=== PATIENT | male | born 1965 | race African-American/Black ===

== ENCOUNTER 2021-05-01 01:42 | Emergency (ER) | payer SELFPAY ==
[2021-05-01] VITALS (9 sets, daily range): BP systolic 91–127; BP diastolic 57–84; PULSE 96–120; RESP 20–30; TEMP 36.3–36.6; O2SAT 91–100; BMI 24.7
--- NOTE | ~2021-05-01 | XR_ITS ---
EXAMINATION: XR CHEST CLINICAL INFORMATION: Intubation. OG tube placement. COMPARISON: None TECHNIQUE: Frontal view of the chest was obtained. FINDINGS: Cardiac leads overlie the chest. Defibrillator pad overlies the chest, limiting evaluation. Endotracheal tube appears to terminate approximately 2 cm above the jacek. Enteric tube terminates in the stomach. The lungs are well expanded. Patchy left basilar opacity noted. No pleural effusion or pneumothorax. The cardiomediastinal silhouette is within normal limits. XR/XR chest 1V IMPRESSION: Endotracheal tube terminates approximately 2 cm above the jacek. Enteric tube terminates in the stomach. Patchy opacity at the left lung base. This could be atelectasis or pneumonia.
--- NOTE | ~2021-05-01 | XR_ITS ---
EXAMINATION: XR CHEST CLINICAL INFORMATION: Check for ET tube placement. COMPARISON: Same day earlier. TECHNIQUE: Frontal view of the chest was obtained. FINDINGS: Gastric tube passing below the diaphragm into the stomach. Endotracheal tube tip is 2 cm above jacek. Redemonstration of patchy interstitial opacification at left lung base unchanged allowing variation in technique. No large effusion. XR/XR chest 1V IMPRESSION: Endotracheal tube is only 1 cm above jacek, this can be pulled back 3 cm for optimal positioning. Gastric tube in place properly positioned. Mild patchy opacification at left lung base unchanged.
--- NOTE | 2021-05-01 02:46 | ED.ALCOHOL ---
HPI - Alcohol General Chief Complaint: ETOH/Substance Use Stated Complaint: ETOH Time Seen by Provider: 05/01/21 02:45 Source: family Mode of arrival: other History of Present Illness HPI narrative: 56-year-old male who [place] and is brought in by family member for patient having had ?7 or 8 shots as well as 6 beers? that the family is aware of. Patient is a noted drinker, but family member became concerned when patient began vomiting. None of the history is able to be obtained from the patient at this time. Related Data Allergies Allergy/AdvReac Type Severity Reaction Status Date / Time No Known Allergies Allergy Verified 05/01/21 01:47 Review of Systems Review of Systems: Yes Unobtainable due to mental status PMFSH Past Medical History Medical History ETOH abuse Social History Social History Alcohol intake: unknown Patient Tobacco Use Status: Tobacco use Unknown Use of substances other than those prescribed or required for medical reasons: Unable to respond Advance Directives: No Physical Exam Vital Signs: Vital Signs: Last Vital Signs Temp 97.6 F 05/01/21 03:57 Pulse 105 H 05/01/21 06:08 Resp 22 H 05/01/21 06:08 BP 104/67 05/01/21 06:08 Pulse Ox 96 05/01/21 03:57 Body Mass Index 24.7 VITAL SIGNS: Reviewed. GENERAL: Well developed, smells of alcohol HEAD: Normocephalic/atraumatic EYES: PERRLA, EOMI, does not appear to be pinpoint. EARS: Ext canals without abnormality, TMs non-bulging and non-erythematous NOSE: Nares patent bilateral OROPHARYNX: no oral lesions noted, posterior pharynx clear NECK: Supple, no adenopathy LUNGS: Decreased breath sounds but without wheeze/rhonchi/rales No adventitious sounds or accessory muscle use. SpO2<94> CARDIOVASCULAR: Regular rate and rhythm without noted murmurs ABDOMEN: Soft, non-tender, non-distended with bowel sounds. SKIN: Inspection of the skin reveals no rashes NEUROLOGIC: GCS-10, non-focal Course Course Course Narrative: 56-year-old male with history and clinical presentation consistent with significant alcohol intoxication, patient did receive Narcan initially for questionable co-intoxication. Patient appeared to have improved level of consciousness he, however began vomiting once again with questionable coffee-ground emesis and at that time patient was intubated. Patient received 80 mg Protonix IV push, however stool guaiac is negative and BUN is not elevated. Chest x-ray for ET tube and OGT placement demonstrates left lower lobe patchy opacity and given vomiting episodes suspect that this is aspiration and patient was provided with combination Zosyn and vancomycin. Patient is receiving sedation with propofol and Versed. Hospital ICU is full and patient will be transferred after discussion of case to [facility] after both [facility] and [facility] were unable to accept transfer. Patient remains hemodynamically stable and family is aware of all results, diagnoses, as well as transfer to [place]. Reevaluation(s) Reevaluation #2: Patient began vomiting copiously and decision was made to intubate for airway protection as he did not appear concerned. In addition, vomitus appears to be coffee-ground in nature and type and screen as well as stool occult were obtained. Time: 04:15 MDM - Alcohol Lab Data Result diagrams: 05/01/21 06:03 05/01/21 03:02 Labs: Lab Results 05/01/21 05/01/21 05/01/21 Range/Units 03:02 03:02 03:02 WBC 14.9 H (4.8-10.8) X10*3/uL RBC 4.79 (4.60-5.80) X10*6/uL Hgb 15.0 (14.0-18.0) g/dl Hct 44.6 (42-52) % MCV 93.1 (80-98) fL MCH 31.3 (27.0-33.0) pg MCHC 33.6 (31.0-36.0) g/dl RDW 11.9 (11.0-16.0) % Plt Count 288 (160-400) X10*3/uL MPV 9.3 L (9.4-12.4) fL Immature Gran % (Auto) 0.8 H (0.0-0.4) % Neut % (Auto) 72.9 (45-73) % Lymph % (Auto) 19.1 L (20-40) % [place] % (Auto) 4.8 (2-11) % Eos % (Auto) 1.7 (0-4) % Baso % (Auto) 0.7 (0-2) % Lymph # (Auto) 2.8 (1.2-4.9) X10*3/uL [place] # (Auto) 0.7 (0.1-1.2) X10*3/uL Eos # (Auto) 0.3 (0.0-0.4) X10*3/uL Baso # (Auto) 0.1 (0.0-0.2) X10*3/uL Abs Immat Gran (auto) 0.12 H (0.00-0.03) X10*3/uL Absolute Neuts (auto) 10.9 H (2.0-8.3) X10*3/uL Absolute Nucleated RBC 0.000 (0.0-0.012) X10*3/uL Nucleated RBC % (auto) 0.0 (0.0-0.2) /100WBC PT (9.9-13.0) SEC INR (0.9-1.1) Sodium 141 (135-145) mmol/L Potassium 3.6 (3.3-5.1) mmol/L Chloride 103 (96-108) mmol/L Carbon Dioxide 25 (22-29) mmol/L Anion Gap 17 (12-20) BUN 12 (9-16) mg/dL Creatinine 0.81 (0.5-1.4) mg/dL Estim Creat Clear Calc 94.0 Estimated GFR > 60 POC Glucose (60-115) mg/dL Random Glucose 157 H (60-115) mg/dL Calcium 8.6 (8.4-10.2) mg/dL Total Bilirubin < 0.2 (0.0-1.0) mg/dL AST 28 (5-37) U/L ALT 53 H (0-40) U/L Alkaline Phosphatase 106 (39-117) U/L Total Protein 7.4 (6.5-8.0) g/dL Albumin 4.3 (3.5-5.0) g/dL Lipase 30 (8-78) U/L Stool Occult Blood (NEGATIVE) Urine Opiates Screen (Not Detect) Urine Fentanyl Screen (Not Detect) Ur Barbiturates Screen (Not Detect) Ur Phencyclidine Scrn (Not Detect) Ur Amphetamines Screen (Not Detect) U Benzodiazepines Scrn (Not Detect) Urine Cocaine Screen (Not Detect) U Marijuana (THC) Screen (Not Detect) Ethyl Alcohol 345 H* mg/dL COVID-19 ([facility]) (Negative) COVID-19 Clin Com Blood Type Antibody Screen 05/01/21 05/01/21 05/01/21 Range/Units 03:10 03:26 04:13 WBC (4.8-10.8) X10*3/uL RBC (4.60-5.80) X10*6/uL Hgb (14.0-18.0) g/dl Hct (42-52) % MCV (80-98) fL MCH (27.0-33.0) pg MCHC (31.0-36.0) g/dl RDW (11.0-16.0) % Plt Count (160-400) X10*3/uL MPV (9.4-12.4) fL Immature Gran % (Auto) (0.0-0.4) % Neut % (Auto) (45-73) % Lymph % (Auto) (20-40) % [place] % (Auto) (2-11) % Eos % (Auto) (0-4) % Baso % (Auto) (0-2) % Lymph # (Auto) (1.2-4.9) X10*3/uL [place] # (Auto) (0.1-1.2) X10*3/uL Eos # (Auto) (0.0-0.4) X10*3/uL Baso # (Auto) (0.0-0.2) X10*3/uL Abs Immat Gran (auto) (0.00-0.03) X10*3/uL Absolute Neuts (auto) (2.0-8.3) X10*3/uL Absolute Nucleated RBC (0.0-0.012) X10*3/uL Nucleated RBC % (auto) (0.0-0.2) /100WBC PT (9.9-13.0) SEC INR (0.9-1.1) Sodium (135-145) mmol/L Potassium (3.3-5.1) mmol/L Chloride (96-108) mmol/L Carbon Dioxide (22-29) mmol/L Anion Gap (12-20) BUN (9-16) mg/dL Creatinine (0.5-1.4) mg/dL Estim Creat Clear Calc Estimated GFR POC Glucose 178 H (60-115) mg/dL Random Glucose (60-115) mg/dL Calcium (8.4-10.2) mg/dL Total Bilirubin (0.0-1.0) mg/dL AST (5-37) U/L ALT (0-40) U/L Alkaline Phosphatase (39-117) U/L Total Protein (6.5-8.0) g/dL Albumin (3.5-5.0) g/dL Lipase (8-78) U/L Stool Occult Blood (NEGATIVE) Urine Opiates Screen Not Detected (Not Detect) Urine Fentanyl Screen Not Detected (Not Detect) Ur Barbiturates Screen Not Detected (Not Detect) Ur Phencyclidine Scrn Not Detected (Not Detect) Ur Amphetamines Screen Not Detected (Not Detect) U Benzodiazepines Scrn Not Detected (Not Detect) Urine Cocaine Screen Not Detected (Not Detect) U Marijuana (THC) Screen POSITIVE H (Not Detect) Ethyl Alcohol mg/dL COVID-19 ([facility]) (Negative) COVID-19 Clin Com Blood Type O Positive Antibody Screen NEGATIVE 05/01/21 05/01/21 05/01/21 Range/Units 05:22 05:27 06:03 WBC 13.4 H (4.8-10.8) X10*3/uL RBC 4.67 (4.60-5.80) X10*6/uL Hgb 14.8 (14.0-18.0) g/dl Hct 43.2 (42-52) % MCV 92.5 (80-98) fL MCH 31.7 (27.0-33.0) pg MCHC 34.3 (31.0-36.0) g/dl RDW 11.9 (11.0-16.0) % Plt Count 276 (160-400) X10*3/uL MPV 9.4 (9.4-12.4) fL Immature Gran % (Auto) 0.9 H (0.0-0.4) % Neut % (Auto) 76.4 H (45-73) % Lymph % (Auto) 16.8 L (20-40) % [place] % (Auto) 4.9 (2-11) % Eos % (Auto) 0.5 (0-4) % Baso % (Auto) 0.5 (0-2) % Lymph # (Auto) 2.3 (1.2-4.9) X10*3/uL [place] # (Auto) 0.7 (0.1-1.2) X10*3/uL Eos # (Auto) 0.1 (0.0-0.4) X10*3/uL Baso # (Auto) 0.1 (0.0-0.2) X10*3/uL Abs Immat Gran (auto) 0.12 H (0.00-0.03) X10*3/uL Absolute Neuts (auto) 10.2 H (2.0-8.3) X10*3/uL Absolute Nucleated RBC 0.000 (0.0-0.012) X10*3/uL Nucleated RBC % (auto) 0.0 (0.0-0.2) /100WBC PT (9.9-13.0) SEC INR (0.9-1.1) Sodium (135-145) mmol/L Potassium (3.3-5.1) mmol/L Chloride (96-108) mmol/L Carbon Dioxide (22-29) mmol/L Anion Gap (12-20) BUN (9-16) mg/dL Creatinine (0.5-1.4) mg/dL Estim Creat Clear Calc Estimated GFR POC Glucose (60-115) mg/dL Random Glucose (60-115) mg/dL Calcium (8.4-10.2) mg/dL Total Bilirubin (0.0-1.0) mg/dL AST (5-37) U/L ALT (0-40) U/L Alkaline Phosphatase (39-117) U/L Total Protein (6.5-8.0) g/dL Albumin (3.5-5.0) g/dL Lipase (8-78) U/L Stool Occult Blood NEGATIVE (NEGATIVE) Urine Opiates Screen (Not Detect) Urine Fentanyl Screen (Not Detect) Ur Barbiturates Screen (Not Detect) Ur Phencyclidine Scrn (Not Detect) Ur Amphetamines Screen (Not Detect) U Benzodiazepines Scrn (Not Detect) Urine Cocaine Screen (Not Detect) U Marijuana (THC) Screen (Not Detect) Ethyl Alcohol mg/dL COVID-19 ([facility]) Negative (Negative) COVID-19 Clin Com See Note Blood Type Antibody Screen 05/01/21 Range/Units 06:03 WBC (4.8-10.8) X10*3/uL RBC (4.60-5.80) X10*6/uL Hgb (14.0-18.0) g/dl Hct (42-52) % MCV (80-98) fL MCH (27.0-33.0) pg MCHC (31.0-36.0) g/dl RDW (11.0-16.0) % Plt Count (160-400) X10*3/uL MPV (9.4-12.4) fL Immature Gran % (Auto) (0.0-0.4) % Neut % (Auto) (45-73) % Lymph % (Auto) (20-40) % [place] % (Auto) (2-11) % Eos % (Auto) (0-4) % Baso % (Auto) (0-2) % Lymph # (Auto) (1.2-4.9) X10*3/uL [place] # (Auto) (0.1-1.2) X10*3/uL Eos # (Auto) (0.0-0.4) X10*3/uL Baso # (Auto) (0.0-0.2) X10*3/uL Abs Immat Gran (auto) (0.00-0.03) X10*3/uL Absolute Neuts (auto) (2.0-8.3) X10*3/uL Absolute Nucleated RBC (0.0-0.012) X10*3/uL Nucleated RBC % (auto) (0.0-0.2) /100WBC PT 10.7 (9.9-13.0) SEC INR 0.9 (0.9-1.1) Sodium (135-145) mmol/L Potassium (3.3-5.1) mmol/L Chloride (96-108) mmol/L Carbon Dioxide (22-29) mmol/L Anion Gap (12-20) BUN (9-16) mg/dL Creatinine (0.5-1.4) mg/dL Estim Creat Clear Calc Estimated GFR POC Glucose (60-115) mg/dL Random Glucose (60-115) mg/dL Calcium (8.4-10.2) mg/dL Total Bilirubin (0.0-1.0) mg/dL AST (5-37) U/L ALT (0-40) U/L Alkaline Phosphatase (39-117) U/L Total Protein (6.5-8.0) g/dL Albumin (3.5-5.0) g/dL Lipase (8-78) U/L Stool Occult Blood (NEGATIVE) Urine Opiates Screen (Not Detect) Urine Fentanyl Screen (Not Detect) Ur Barbiturates Screen (Not Detect) Ur Phencyclidine Scrn (Not Detect) Ur Amphetamines Screen (Not Detect) U Benzodiazepines Scrn (Not Detect) Urine Cocaine Screen (Not Detect) U Marijuana (THC) Screen (Not Detect) Ethyl Alcohol mg/dL COVID-19 ([facility]) (Negative) COVID-19 Clin Com Blood Type Antibody Screen Procedures Intubation Time out performed: Yes sedative: Etomidate Mg Given: 20 paralytic: Rocuronium Mg Given: 100 Laryngoscope: fiber optic video scope ET Tube Size: 8 ET Tube Uncuffed: No Tube Secured Depth (cm): 26 Tube Secured Location: lips Tube Placement Confirmation: visualized tube passing through cords, equal breath sounds bilaterally, no breath sounds over epigastrium and confirmation by capnometry Patient Tolerated Procedure: well Intubation Complications: other Additional Comments: 2nd pass required, no hypoxia noted. Critical Care Time Critical Care Time Critical Care Time: Yes Total Critical Care Time: 60 Attestation: I personally attest to this time spent taking care of the patient. Discharge Plan Discharge Clinical Impression: Alcoholic intoxication, Aspiration pneumonia, Vomiting Patient Disposition: Xfer Acute Care Hospital Transfer Details: Hospital ICU was full and patient requires ICU management with ventilator and aspiration.
[2021-05-01 03:08] LABS: Basophils Absolute Auto 0.1 X10*3/uL (0.0-0.2); Basophils Percent Auto 0.7 % (0-2); Eosinophils Absolute Auto 0.3 X10*3/uL (0.0-0.4); Eosinophils Percent Auto 1.7 % (0-4); Hematocrit 44.6 % (42-52); Imm Gran Abs Auto 0.12 X10*3/uL (0.00-0.03); Imm Gran Pct Auto 0.8 % (0.0-0.4); Lymphocytes Absolute Auto 2.8 X10*3/uL (1.2-4.9); Lymphocytes Percent Auto 19.1 % (20-40); MANUAL DIFF FLAG NO; Mean Corpuscular HGB Conc 33.6 g/dl (31.0-36.0); Mean Corpuscular Hemoglobin 31.3 pg (27.0-33.0); Mean Corpuscular Volume 93.1 fL (80-98); Mean Platelet Volume 9.3 fL (9.4-12.4); Monocytes Absolute Auto 0.7 X10*3/uL (0.1-1.2); Monocytes Percent Auto 4.8 % (2-11); Neutrophils Absolute Auto 10.9 X10*3/uL (2.0-8.3); Neutrophils Percent Auto 72.9 % (45-73); Platelet Count 288 X10*3/uL (160-400); Red Blood Count 4.79 X10*6/uL (4.60-5.80); Red Cell Distribution Width 11.9 % (11.0-16.0); White Blood Count 14.9 X10*3/uL (4.8-10.8)
[2021-05-01] MEDS: Naloxone HCl Nasal 4 MG SPRAY NOSTRILALT ×2 (03:28→03:30)
[2021-05-01] MEDS: Naloxone HCl 0.4 MG/ML VIAL IVPUSH (03:30)
--- NOTE | 2021-05-01 03:32 | PC.NURSE ---
Difficulting arousing pt , pt vomiting dark emesis, Pt given 8mgs of Narcan nasal with some respond. 0.4mg Iv Narcan pt did respond question and to painful stimulus. pt is on is on tele-monitor. Pt removed to room 12 for closer observation.
[2021-05-01 03:36] LABS: Ethanol 345 mg/dL
[2021-05-01 03:43] LABS: Alanine Aminotransferase 53 U/L (0-40); Albumin Level 4.3 g/dL (3.5-5.0); Alkaline Phosphatase 106 U/L (39-117); Anion Gap 17 (12-20); Aspartate Amino Transferase 28 U/L (5-37); Bilirubin Total < 0.2 mg/dL (0.0-1.0); Blood Urea Nitrogen 12 mg/dL (9-16); Calcium 8.6 mg/dL (8.4-10.2); Carbon Dioxide 25 mmol/L (22-29); Chloride 103 mmol/L (96-108); Estimated Glomerular Filt Rate > 60; Glucose Random 157 mg/dL (60-115); Potassium 3.6 mmol/L (3.3-5.1); Sodium 141 mmol/L (135-145); Total Protein 7.4 g/dL (6.5-8.0)
[2021-05-01 03:53] LABS: Glucose, Whole Blood 178 mg/dL (60-115)
[2021-05-01 03:58] LABS: Amphetamine Screen Urine Not Detected (Not Detect); Barbiturates, Urine Not Detected (Not Detect); Benzodiazepines Screen Urine Not Detected (Not Detect); Cannabinoid Screen Urine POSITIVE (Not Detect); Cocaine Screen Urine Not Detected (Not Detect); Fentanyl, urine Not Detected (Not Detect); Opiate Screen Urine Not Detected (Not Detect); Phencyclidine Screen Urine Not Detected (Not Detect)
--- NOTE | 2021-05-01 03:58 | PC.NURSE ---
pt remains lethargic, able to localize pain, attached to all continuous monitoring, AED at bedside, two PIVs in place, in view of RN station for safety and observation
[2021-05-01] MEDS: Rocuronium Bromide 50 MG/5 ML VIAL 100 MG IVPUSH (04:15)
[2021-05-01] MEDS: Etomidate 20 MG/10 ML VIAL IVPUSH (04:15)
--- NOTE | 2021-05-01 04:23 | PC.NURSE ---
Pt having projectile vomiting with blood, provider notified and into assess patient. pt difficult to arouse. Plan to intubate pre intubation 04:10am at the bedside for intubating pt. 4:13am Vitals -bp 128/94 (map 103) O2 99 % on 2l nc During intubation 4:15am 20 etomidate 4:15am 100mg of [place] HR 120 O2-95 22r B/p 151/88 ( map 109) - intubation 4:16am O2 99 4:17am HR-145 O2-95 R-18 B/P 170/98 Post-Intubation 26@the lip @ 4:20am HR-151 O2-100 R-22 Gube in- size 16 4:22pm B/P 188/102 4:38am Whole bed change and aj care completed, diggs being placed. Placement of G-tube confirm by x-ray.
[2021-05-01] MEDS: propofoL 1,000 MG/100 ML VIAL 2.15 MG IVCONT (04:26)
[2021-05-01] MEDS: Pantoprazole Sodium 40 MG/10 ML VIAL 80 MG IVPUSH (05:04)
--- NOTE | 2021-05-01 05:17 | PC.NURSE ---
Notified Step-son Branden of patient status.
[2021-05-01 05:36] LABS: OBS Int Ctl Valid YES; OBS1 NEGATIVE (NEGATIVE)
[2021-05-01 05:50] LABS: COVID-19 Test Negative (Negative)
[2021-05-01] MEDS: ondansetron HCL 4 MG/2 ML VIAL IVPUSH ×2 (05:50→07:38)
[2021-05-01] MEDS: Midazolam HCl/PF 2 MG/2 ML VIAL 4 MG IVPUSH ×2 (05:50→06:30)
[2021-05-01 06:08] LABS: MANUAL DIFF FLAG NO
[2021-05-01 06:12] LABS: Basophils Absolute Auto 0.1 X10*3/uL (0.0-0.2); Basophils Percent Auto 0.5 % (0-2); Eosinophils Absolute Auto 0.1 X10*3/uL (0.0-0.4); Eosinophils Percent Auto 0.5 % (0-4); Hematocrit 43.2 % (42-52); Hemoglobin 14.8 g/dl (14.0-18.0); Imm Gran Abs Auto 0.12 X10*3/uL (0.00-0.03); Imm Gran Pct Auto 0.9 % (0.0-0.4); Lymphocytes Absolute Auto 2.3 X10*3/uL (1.2-4.9); Lymphocytes Percent Auto 16.8 % (20-40); Mean Corpuscular HGB Conc 34.3 g/dl (31.0-36.0); Mean Corpuscular Hemoglobin 31.7 pg (27.0-33.0); Mean Corpuscular Volume 92.5 fL (80-98); Mean Platelet Volume 9.4 fL (9.4-12.4); Monocytes Absolute Auto 0.7 X10*3/uL (0.1-1.2); Monocytes Percent Auto 4.9 % (2-11); Neutrophils Absolute Auto 10.2 X10*3/uL (2.0-8.3); Neutrophils Percent Auto 76.4 % (45-73); Platelet Count 276 X10*3/uL (160-400); Red Blood Count 4.67 X10*6/uL (4.60-5.80); Red Cell Distribution Width 11.9 % (11.0-16.0); White Blood Count 13.4 X10*3/uL (4.8-10.8)
[2021-05-01 06:16] LABS: INTERNATIONAL NORM RATIO 0.9 (0.9-1.1); Prothrombin Time 10.7 SEC (9.9-13.0)
[2021-05-01] MEDS: Midazolam HCl/NS 50 MG/50 ML PLAST..BAG IVCONT (06:32)
[2021-05-01 06:38] LABS: Lipase 30 U/L (8-78)
[2021-05-01] MEDS: Piperacillin Sodium/Tazobactam 3.375 GM in 0.9 % Sodium Chloride 50 ML IV (07:18)
--- NOTE | 2021-05-01 07:55 | PC.NURSE ---
ETT retracted s/p repeat xray, adjusted to 24 @ lip per RT, vitals stable/ as charted
--- NOTE | 2021-05-01 08:18 | PC.NURSE ---
Pt transferred via EMS to ED at [facility] at this time, sent in stable condition w/ all belongings. Lines, tubes, drains, vent settings, vitals, and infusions reviewed w/ EMS prior to departure. Most recent vitals as charted. Report called to SARAH Lora at receiving ED. Family aware of transfer
--- NOTE | 2021-05-01 08:21 | PC.NURSE ---
please refer to paper chart for pt vitals between 0330 and 0600
--- NOTE | 2021-05-01 08:23 | PC.NURSE ---
late entry- propofol gtt was initiated at 0426, started at rate of 20 mcg/kg/min per protocol. MAR erroneously reflects starting dose of 5 mcg/kg/min. Remainder of MAR re: propofol titration is accurate
--- NOTE | 2021-05-01 08:36 | PC.NURSE ---
Per [facility], ED not receiving pt, pt to go directly to ICU. Report called to SARAH Jimenes in receiving ICU
== END 2021-05-01 08:38 | disposition short-term general hospital (02) ==
PROVIDERS: Emergency Provider Student in an Organized Health Care Education/Training Program
DX: J69.0 Pneumonitis due to inhalation of food and vomit (principal); F10.129 Alcohol abuse with intoxication, unspecified; Y90.8 Blood alcohol level of 240 mg/100 ml or more; Z20.822 Contact with and (suspected) exposure to COVID-19; Z71.41 Alcohol abuse counseling and surveillance of alcoholic; Z79.899 Other long term (current) drug therapy
CPT/HCPCS: 31500; 36415; 71045; 80053; 80307; 82077; 82272; 82947; 83690; 85025; 85610; 86850; 86900; 86901; 87635; 94002; 94003; 96365; 96367; 96375; 96376; 99285; 99291; J2250; J2405; J2543